=== PATIENT | female | born 1975 | race African-American/Black ===

== ENCOUNTER 2022-08-26 18:58 | Emergency (ER) | payer OTHER, BC ==
[~2022-08-26] VITALS: Ht 175.3 cm; Wt 82.0 kg
[2022-08-26 19:07] VITALS: BP 152/84
== END 2022-08-26 20:18 | disposition left against medical advice (07) ==
LOC: ER 18:58
DX: R53.1 Weakness (principal); I10 Essential (primary) hypertension; Z88.0 Allergy status to penicillin
CPT/HCPCS: 99283

== ENCOUNTER 2024-11-19 13:56 | Emergency (ER) | payer OTHER, BC ==
[~2024-11-19] VITALS: Ht 162.6 cm; Wt 73.0 kg
[2024-11-19] MEDS: IBUPROFEN 600MG TABLET PO ONE (15:37)
[2024-11-19] MEDS: HYDROCODONE/ACETAMINOPHEN 5/325MG TABLET PO ONE (15:39)
[2024-11-19 15:40] VITALS: BP 154/91; PULSE 61; RESP 18; TEMP 37.1; O2SAT 99
[2024-11-19] MEDS ORDERED: IBUP-2029 MT (15:46)
== END 2024-11-19 16:11 | disposition home or self-care (01) ==
LOC: ER 13:56
DX: M77.12 Lateral epicondylitis, left elbow (principal); I10 Essential (primary) hypertension; Z88.0 Allergy status to penicillin; Z88.1 Allergy status to other antibiotic agents; Z88.2 Allergy status to sulfonamides
CPT/HCPCS: 73080; 99283